=== PATIENT | male | born 1985 | race Caucasian/White ===

== ENCOUNTER 2020-11-07 19:12 | Emergency (ER) | payer OTHER, SELFPAY ==
[2020-11-07 20:10] VITALS: BP 151/73; PULSE 97; RESP 16; TEMP 37.1; O2SAT 97; BMI 22.2
--- NOTE | 2020-11-07 22:32 | ED.GENADULT ---
HPI - General Adult General Chief complaint: General Medical Stated complaint: Blood in urine Time Seen by Provider: 11/07/20 22:08 Source: patient Mode of arrival: ambulatory Limitations: no limitations History of Present Illness HPI narrative: 34-year-old male here with multiple complaints. The patient tells me for the last 2 years he has had UTI symptoms which she describes as frequency, burning, urgency with urination. He has also noticed some intermittent hematuria in his urine and also in his semen. He tells me that these symptoms seem to occur after intercourse. He has had testing for UTIs and STI's multiple times and they are negative. Patient denies new partners. Denies testicular pain. He tells me that he is here today because he is seeking a referral for urologist. Related Data Allergies Allergy/AdvReac Type Severity Reaction Status Date / Time ENVIROMENTAL Allergy Mild ITCHY Uncoded 05/31/20 17:09 WATERY EYES, Review of Systems Review of Systems: Yes all other systems are reviewed and are negative Constitutional: Constitutional: Reports no additional constitutional complaints, Denies body ache(s), Denies chills, Denies fever(s), Denies headache(s) and Denies weakness Eyes: Eyes: Reports no additional eye complaints and Denies change in vision ENT: Reports system reviewed and no additional complaints, except as documented, Denies dizziness, Denies headache(s), Denies nasal congestion, Denies nasal discharge and Denies neck pain Cardiovascular: Cardiovascular: Reports no additional cardiovascular complaints, Denies chest pain, Denies leg edema and Denies dyspnea Respiratory: Respiratory: Reports no additional respiratory complaints, Denies cough and Denies dyspnea Gastrointestinal: Gastrointestinal: Reports no additional gastrointestinal complaints, Denies abdominal pain, Denies diarrhea, Denies nausea and Denies vomiting Genitourinary: Genitourinary: Reports hematospermia, Reports hematuria, Reports dysuria, Reports penile discharge, Denies testicular pain, Reports urinary frequency and Denies urinary incontinence Musculoskeletal: Musculoskeletal: Reports no additional musculoskeletal complaints, Denies back pain, Denies arthralgias, Denies joint swelling, Denies neck pain, Denies numbness and Denies tingling Integumentary/Breasts: Skin/Breast: Reports system reviewed and no additional complaints, except as docu and Denies rash Neurologic: Denies Abnormal speech present, Denies dizziness, Denies headache(s), Denies numbness, Denies tingling and Denies weakness PMFSH Past Medical History Attestation statement: The following information was validated with the patient. Source: old records reviewed and nursing notes reviewed Medical History Anxiety Heart palpitations Kidney stone Social History Social History Alcohol intake: unknown Smoking Status: Unknown if ever smoked Use of substances other than those prescribed or required for medical reasons: Unknown Advance Directives: No Advance Directives Information Provided: Yes Physical Exam Vital Signs: Vital Signs: Last Vital Signs Temp 98.8 F 11/07/20 20:10 Pulse 97 11/07/20 20:10 Resp 16 11/07/20 20:10 BP 151/73 H 11/07/20 20:10 Pulse Ox 97 11/07/20 20:10 Body Mass Index 22.2 Const: General: cooperative, healthy appearing, comfortable and no acute distress Orientation/consciousness: patient oriented x3 Limitations: no limitations HENMT: Head: Yes normal to inspection Ears: hearing grossly normal bilaterally General nose exam: Normal external nose present Face and sinus: Yes normal facial exam Mouth: Normal oral and palatal mucosa present Throat: Yes posterior oropharynx normal Eyes: General: appearance normal, both eyes and all related structures Pupils: Equal, round and reactive pupils present Neck: Neck: Yes normal visual inspection Chest: Chest palpation & inspection: normal inspection of the chest Resp: Effort & Inspection: normal respiratory effort Auscultation: clear to auscultation bilaterally Cardio: Rate: regular rate Rhythm: regular rhythm Peripheral pulses: Peripheral pulses 2+ throughout GI: Inspection: Yes normal to inspection Palpation (GI): Soft to palpation and nontender Auscultation: normal bowel sounds : Other: Deferred by patient Back/Spine/Pelvis: Thoracic/Lumbar Spine: thoracic and lumbar spine normal to inspection Skin: General skin exam: no rashes or lesions noted Neuro: General: patient oriented x3, no focal motor deficits and normal sensation to monofilament Cranial nerves: Yes Equal, round and reactive pupils present Cognition (Neuro): normal cognition Speech: No Abnormal speech present Gait exam (Neuro): Normal gait present Motor exam (neuro): 5/5 motor strength present throughout Extrem: General: Yes normal to inspection Course Course Course Narrative: Will send STD testing and UA. Pt deferred exam. Here with symptoms of intermittent urinary frequency, urgency, dysuria, discharge, hematuria, blood in the semen for more than 2 years. Patient deferred treatment for STDs and is aware he will need to return for additional treatment if positive. Referral given. Reviewed worrisome signs and symptoms and when to return to the emergency department. Comfortable discharge home. Medical Decision Making Lab Data Labs: Lab Results 11/07/20 Range/Units 22:35 Urine Color YELLOW Urine Appearance CLEAR Urine pH 6.5 (5.0-8.0) Ur Specific Mitchell 1.020 (1.005-1.025) Urine Protein NEG (NEG-TRACE) MG/DL Urine Glucose (UA) NEG (NEG) MG/DL Urine Ketones NEG (NEG) MG/DL Urine Blood NEG (NEG) Urine Nitrite NEG (NEG) Ur Leukocyte Esterase NEG (NEG) Discharge Plan Discharge Clinical Impression: Hematuria Qualifiers: Hematuria type: unspecified type Qualified Code(s): R31.9 - Hematuria, unspecified Patient Disposition: Home, Self-Care Instructions: Hematuria (ED) Additional Instructions: We have sent of testing for urinary tract infections and STD's. We will call you if these tests are positive. Call the urology office tomorrow for a follow-up. Tell them you were seen in the emergency department and referred to them. Referrals: Roberto Livingston MD [Physician] - 2 days Interventions: ED Discharge Assessment Last Done: 11/07/20 22:54 Discharge Date/Time: 11/07/20 22:54
[2020-11-07 22:43] LABS: Glucose Urine UA NEG (NEG); Leukocyte Esterase Urine NEG (NEG); Nitrite Urine NEG (NEG); PH 6.5 (5.0-8.0); Urine Blood NEG (NEG); Urine Ketones NEG (NEG); Urine Protein NEG (NEG-TRACE)
[2020-11-07 22:44] LABS: Appearance Urine CLEAR; Color Urine YELLOW
[2020-11-09 14:02] LABS: C. trachomatis RNA TMA NOT DETECTED (NOT DETECTED); N. gonorrhoeae RNA TMA NOT DETECTED (NOT DETECTED)
== END 2020-11-07 22:54 | disposition home or self-care (01) ==
PROVIDERS: Nurse Practitioner Family; Emergency Provider Emergency Medicine; PCP Internal Medicine
DX: R31.9 Hematuria, unspecified (principal); F41.9 Anxiety disorder, unspecified; Z87.442 Personal history of urinary calculi; Z11.3 Encounter for screening for infections with a predominantly sexual mode of transmission
CPT/HCPCS: 36415; 81003; 87491; 87591; 99283